=== PATIENT | female | born 1975 | race Caucasian/White ===

== ENCOUNTER → 2019-07-28 | Outpatient (CLI) | payer BC | LOC: COL.RAD 10:30 | DX: N99.72 Accidental puncture and laceration of a genitourinary system organ or structure during other procedure (principal) | CPT/HCPCS: Q9967 ==

== ENCOUNTER 2019-08-02 10:07 | Emergency (ER) | payer BC ==
[~2019-08-02] VITALS: Ht 175.3 cm; Wt 68.2 kg
[2019-08-02 10:16] VITALS: TEMP 98.5
[2019-08-02 10:44] LABS: BASO % 0.2 % (0.0-2.0); EOS # 0.5 (0.0-0.7); EOS % 4.1 % (0-4.0); GRAN % 84.9 % (42.2-75.2); LYMPH # 0.7 (1.2-3.4); LYMPH % 6.2 % (20.0-51.0); MEAN CELL VOLUME 93 fl (80.0-100.0); MEAN CORPUSCULAR HGB CONC 32 g/dl (33.0-37.0); MONO # 0.5 (0.1-0.6); MONO % 4.3 % (1.7-9.3); PLATELET COUNT 344 K/mm3 (130-400); RED BLOOD COUNT 3.23 M/mm3 (4.10-5.30); REDCELL DISTRIBUTION WIDTH-CV 12.5 % (11.5-14.5)
[2019-08-02 10:49] LABS: HEMATOCRIT 29.9 % (37.0-47.0); HEMOGLOBIN 9.5 g/dl (12.5-16.0); MEAN CORPUSCULAR HEMOGLOBIN 29 pg (27.0-31.0)
[2019-08-02] MEDS ORDERED: OMNICEF 300MG300 MG PO (10:49)
[2019-08-02] MEDS ORDERED: PERCOCET 325 MG1 TA2 PO (10:50)
[2019-08-02] MEDS ORDERED: ESTRACE 1MG1 MG/TAB PO (10:50)
[2019-08-02] MEDS ORDERED: IBU800 M1 PO (10:51)
[2019-08-02 11:01] LABS: ALANINE AMINOTRANSFERASE < 6 U/L (9-52); ALBUMIN 4.2 gm/dL (3.5-5.0); ALKALINE PHOSPHATASE 63 U/L (50-136); ANION GAP 10 mmol/L (7-16); AST,SGOT 24 U/L (15-37); BILIRUBIN,TOTAL 0.5 mg/dL (0.0-1.0); BLOOD UREA NITROGEN 12 mg/dL (7-17); C-REACTIVE PROTEIN 7.7 mg/dL (0.0-0.9); CARBON DIOXIDE 27 mmol/L (22-30); CHLORIDE 102 mmol/L (98-107); CREATININE, serum 0.68 (0.52-1.25); GLUCOSE 104 mg/dL (74-106); POTASSIUM 3.2 mmol/L (3.4-5.0); SODIUM 139 mmol/L (137-145); TOTAL PROTEIN 7.6 gm/dL (6.4-8.2)
[2019-08-02] MEDS ORDERED: CLEOCIN HCL300 MG PO (13:49)
[2019-08-02] MEDS ORDERED: ZOFRAN ODT4 MG PO (13:49)
[2019-08-02 14:03] VITALS: BP 117/65; PULSE 88
== END 2019-08-02 14:05 | disposition home or self-care (01) ==
LOC: COL.ER 10:07
PROVIDERS: Physician Assistant
DX: M54.5 Low back pain (principal); Z90.710 Acquired absence of both cervix and uterus
CPT/HCPCS: J1170; J1885; J2405; J7030; Q9967